=== PATIENT | female | born 1980 | race Caucasian/White ===

== ENCOUNTER 2022-05-09 08:41 | Outpatient (CLI) | payer BC, SELFPAY ==
[2022-05-09 11:29] LABS: Chloride* 105 mmol/L (96-114); Potassium* 4.6 mmol/L (3.6-5.1); Sodium* 139 mmol/L (135-149)
[2022-05-09 11:31] LABS: Carbon Dioxide* 25 mmol/L (20-32); Cholesterol* 199 mg/dL (90-199); Creatinine* 0.8 mg/dL (0.5-1.5); Estimated Glomerular Filt Rate 94 ml/min
[2022-05-09 11:32] LABS: Blood Urea Nitrogen* 11 mg/dL (5-24); Calcium* 9.5 mg/dL (8.4-10.6); Glucose* 92 mg/dL (60-115); HDL Cholesterol* 58 mg/dL (>=50); LDL Cholesterol Calculated 107 mg/dL (<100); Triglycerides* 172 mg/dL (40-149)
== END 2022-05-09 08:42 | disposition home or self-care (01) ==
PROVIDERS: Visit Provider Obstetrics & Gynecology
DX: Z01.419 Encounter for gynecological examination (general) (routine) without abnormal findings (principal); N92.0 Excessive and frequent menstruation with regular cycle; Z13.6 Encounter for screening for cardiovascular disorders
CPT/HCPCS: 80048; 80061; 84443

== ENCOUNTER 2023-05-19 13:39 | Outpatient (CLI) | payer MEDICAID, SELFPAY | END 2023-05-19 13:40 | disposition home or self-care (01) | PROVIDERS: Visit Provider Obstetrics & Gynecology | DX: R42 Dizziness and giddiness (principal) | CPT/HCPCS: 80061; 84146; 84439; 84443 ==

== ENCOUNTER 2023-05-19 14:51 | Emergency (ER) | payer MEDICAID, SELFPAY ==
[2023-05-19] VITALS (11 sets, daily range): BP systolic 120–144; BP diastolic 78–97; PULSE 70–77; RESP 14; TEMP 36.7; O2SAT 96–100; BMI 24.3
[2023-05-19] MEDS: 0.9 % SODIUM CHLORIDE 1000 ml 1,000 ML IV (15:15)
--- NOTE | 2023-05-19 15:22 | ED_ITS ---
HPI - Syncope General Time Seen by Provider: 15:22 Date Seen: 05/19/23 Chief Complaint: Syncope/Fainted Stated Complaint: Faint Time Seen by Provider: 05/19/23 15:18 Source: patient Mode of arrival: ambulatory Limitations: no limitations History of Present Illness HPI narrative: 42-year-old female who comes in today from the lab where she had a syncopal episode while getting blood drawn. [facility] been followed by [facility] for heavy menstrual bleeding, hemoglobin today is stable at 14. Patient is getting blood drawn and then got very lightheaded and dizzy, nauseated but no vomiting, no chest pain or palpitations. Says she feels better now, still little bit dizzy and says her eyes feel heavy. No numbness or tingling the arms or legs. No shortness of breath. Related Data Home Medications Medication Instructions Recorded Confirmed prednisone 10 mg tablet mg PO DIRECTED 05/09/22 05/19/23 Allergies Allergy/AdvReac Type Severity Reaction Status Date / Time No Known Drug Allergies Allergy Verified 05/19/23 13:20 [facility] Social History (Updated 05/19/23 @ 13:29 by Migdalia Cortez ~ [facility], [employer]) What is your current living situation?: I presently have a place to live Problems where you live: no known problems In the past 12 months, utilities in danger of being shut off: no In past 12 months, lack of transportation kept you from medical appts, meetings, work, or getting things needed for daily living: no In the past 12 mos, the food you bought just didn't last and you didn't have money to buy more?: never true Smoking Status: Former smoker Do you use any of these nicotine containing products: None Second hand tobacco smoke exposure: No How often do you have a drink containing alcohol: monthly or less How many standard drinks containing alcohol do you have on a typical day: 1 or 2 How often do you have six or more drinks on one occasion: Never AUDIT-C Alcohol total score: 1 Non-prescribed substance use: denies use How often does anyone, including family, friends and others, physically hurt you : never How often does anyone, including family, friends and others, insult or talk down to you: never How often does anyone, including family, friends and others, threaten you with harm: never How often does anyone, including family, friends and others, scream or curse at you: never Little interest or pleasure in doing things: not at all Feeling down, depressed, or hopeless: not at all service: No Exam Narrative: Exam Narrative: General: Well-developed and well-nourished, no acute distress Head: Atraumatic and normocephalic Eyes: Pupils are equal reactive, extraocular motions intact, conjunctiva clear ENT: External nose and ears are normal, posterior pharynx without erythema or exudate Neck: No midline cervical tenderness, full spontaneous range of motion the neck, trachea midline, no adenopathy Heart: Regular rate and rhythm no murmurs or thrills Lungs: Clear to auscultation bilaterally without wheezes or crackles Abdomen: Soft, nontender, nondistended with active bowel sounds Musculoskeletal: No tenderness, deformity, or edema Neurologic: Awake, alert, and oriented x3, no gross focal neurologic deficits, cranial nerves intact as tested Psych: Mood and affect are appropriate Skin: No rashes Const: Vital Signs, click to edit/add: Vital Signs - 24 hr 05/19/23 14:59 05/19/23 16:15 05/19/23 16:30 Temperature 98.1 F Pulse Rate 75 72 Pulse Rate [Pulse Oximeter] 75 Respiratory Rate 14 Blood Pressure Blood Pressure [Ri ght Upper Arm] 144/97 H Pulse Oximetry 100 98 98 Oxygen Delivery Me thod Room Air 05/19/23 16:32 05/19/23 17:00 05/19/23 17:02 Temperature Pulse Rate 76 77 76 Pulse Rate [Pulse Oximeter] Respiratory Rate Blood Pressure 122/78 127/87 Blood Pressure [Ri ght Upper Arm] Pulse Oximetry 98 98 99 Oxygen Delivery Me thod 05/19/23 17:30 05/19/23 17:32 05/19/23 18:00 Temperature Pulse Rate 75 74 70 Pulse Rate [Pulse Oximeter] Respiratory Rate Blood Pressure 125/82 Blood Pressure [Ri ght Upper Arm] Pulse Oximetry 97 98 96 Oxygen Delivery Tx thod 05/19/23 18:02 05/19/23 18:02 05/19/23 18:14 Temperature 98.1 F Pulse Rate 76 76 Pulse Rate [Pulse Oximeter] 75 Respiratory Rate 14 Blood Pressure 120/84 120/84 Blood Pressure [Ri ght Upper Arm] 144/97 H Pulse Oximetry 97 97 Oxygen Delivery Tx thod Course Course ED Course: Patient seen examined, prior records reviewed. Patient presents today with lightheadedness and syncope while getting blood drawn. Suspect vasovagal syncope, EKG is reassuring. IV fluids were given, patient is finally stable. Labs including D-dimer and troponin are ordered and will continue to monitor closely. Reevaluation(s) Time of Reevaluation #1: 17:33 Reevaluation #1: Labs independently interpreted by me with normal basic metabolic panel, normal CBC, negative troponin, negative D-dimer. Patient is feeling somewhat better after fluids and Zofran. Still little bit dizzy. Patient will be given meclizine and plan to discharge. Vital Signs Vital signs: Initial Vital Signs Temperature 98.1 F 05/19/23 14:59 Temperature Source Temporal Artery Scan 05/19/23 14:59 Pulse Rate 75 05/19/23 14:59 Pulse Rhythm Regular 05/19/23 14:59 Respiratory Rate 14 05/19/23 14:59 Blood Pressure 144/97 H 05/19/23 14:59 Blood Pressure Mean 112 H 05/19/23 14:59 Blood Pressure Position Supine 05/19/23 14:59 Pulse Oximetry 100 05/19/23 14:59 Oxygen Delivery Method Room Air 05/19/23 14:59 Vital Signs Temperature 98.1 F 05/19/23 14:59 Pulse Rate 75 05/19/23 14:59 Respiratory Rate 14 05/19/23 14:59 Blood Pressure 144/97 H 05/19/23 14:59 Pulse Oximetry 100 05/19/23 14:59 Oxygen Delivery Method Room Air 05/19/23 14:59 Temperature 98.1 F 05/19/23 18:14 Pulse Rate 75 05/19/23 18:14 Respiratory Rate 14 05/19/23 18:14 Blood Pressure 144/97 H 05/19/23 18:14 Pulse Oximetry 97 05/19/23 18:02 Oxygen Delivery Method Room Air 05/19/23 14:59 Medications Administered Medications: Discontinued Medications Generic Name Dose Route Start Last Admin Trade Name Freq PRN Reason Stop Dose Admin Sodium Chloride 1,000 mls @ 1,000 mls/hr 05/19/23 15:45 05/19/23 16:20 0.9 % Sodium Chloride 1000 Ml IV 05/19/23 16:44 Infused .Q1H MARITZA Infusion Meclizine HCl 25 mg 05/19/23 17:34 05/19/23 17:43 Meclizine Hcl 25 Mg Tablet PO 05/19/23 17:35 25 mg ONCE ONE Administration Ondansetron HCl 4 mg 05/19/23 15:33 05/19/23 15:45 Ondansetron 2 Mg/Ml Inj IVP 05/19/23 15:34 4 mg ONCE ONE Administration MDM - Syncope Lab Data Labs: Lab Results 05/19/23 05/19/23 Range/Units 15:15 17:15 WBC 7.36 (4.50-11.00) K/uL RBC 4.56 (4.00-5.20) m/uL Hgb 13.3 (12.0-16.0) gm/dL Hct 40.1 (33.0-51.0) % MCV 88 (80-100) fL MCH 29 (26-34) pg MCHC 33 (32-36) gm/dL RDW Coeff of Raya 12.3 (11.5-15.5) % Plt Count 292 (140-440) K/uL Neut % (Auto) 39.0 L (42.0-72.0) % Lymph % (Auto) 52.0 H (20-44) % [place] % (Auto) 4.9 (0.0-11.0) % Eos % (Auto) 3.5 (0.0-7.0) % Baso % (Auto) 0.5 (0.0-3.0) % Neut # (Auto) 2.90 (1.7-7.0) K/uL Lymph # (Auto) 3.80 H (0.90-2.90) K/uL [place] # (Auto) 0.40 (0.00-0.90) K/UL Eos # (Auto) 0.26 (0.00-0.50) K/uL Baso # (Auto) 0.04 (0.00-0.30) K/uL Abs Immat Gran (auto) 0.01 (0.00-0.30) K/uL Imm/Tot Granulo (auto) 0.1 % D-Dimer Quant (PE/DVT) < 0.27 (0.00-0.50) ug/ml Sodium 136 (135-149) mmol/L Potassium 3.6 (3.6-5.1) mmol/L Chloride 102 (96-114) mmol/L Carbon Dioxide 23 (20-32) mmol/L Anion Gap 11 (7-15) mEq/L BUN 14 (5-24) mg/dL Creatinine 0.8 (0.5-1.5) mg/dL Estimated Creat Clear 91.47 Estimated GFR 94 ml/min Glucose 95 (60-115) mg/dL Calcium 9.3 (8.4-10.6) mg/dL Urine Color Yellow (Yellow) Urine Appearance Clear (Clear) Urine pH 7.0 (5.0-8.5) Ur Specific [place] 1.010 (1.000-1.030) Urine Protein Negative (Negative) Urine Glucose (UA) Negative (Negative) Urine Ketones Negative (Negative) Urine Blood 2+ A (Negative) Urine Nitrite Negative (Negative) Urine Bilirubin Negative (Negative) Urine Urobilinogen 0.2 (0.2-1.0) Ur Leukocyte Esterase Negative (Negative) Urine RBC 2-5 A (0-2) Urine WBC 2-5 (0-5) Ur Squamous Epith Cells Few (None-Few) Urine Bacteria None (None) POC Troponin I 0.00 L (0.01-0.04) ng/ml ECG Data Attestation: I personally reviewed and interpreted this ECG as follows: ECG interpretation date: 05/19/23 ECG interpretation time: 15:29 Prior ECG tracings: not available for review Interpretation: Sinus rhythm rate 75, no acute ischemic changes, normal intervals, normal axis, PA 158, QTC 426 Discharge Plan Discharge Clinical Impression: Vasovagal syncope Patient Disposition: Home, Self-Care Condition: Stable Instructions: Syncope (DC) Activity Level: No Restrictions Discharge Diet: Regular Prescriptions: No Action prednisone 10 mg tablet PO DIRECTED Patient Comments: take 4 tablets by mouth once daily in the morning with food for 3 days then decrease to 3 tablets once daily for 3 days then 2 tablets for 3 Follow Up/Referrals: Provider,Not a Local [Primary Care Provider] - Stand Alone Forms: [employer] Info Instructions
[2023-05-19] MEDS: ONDANSETRON 2 MG/ML inj 4 MG IVP (15:45)
[2023-05-19 15:59] LABS: Basophils Absolute Auto 0.04 K/uL (0.00-0.30); Basophils Percent Auto 0.5 % (0.0-3.0); Eosinophils Absolute Auto 0.26 K/uL (0.00-0.50); Eosinophils Percent Auto 3.5 % (0.0-7.0); Hematocrit 40.1 % (33.0-51.0); Hemoglobin* 13.3 gm/dL (12.0-16.0); Immature Granulocytes Abs Auto 0.01 K/uL (0.00-0.30); Immature Granulocytes Pct Auto 0.1 %; Mean Corpuscular HGB Conc 33 gm/dL (32-36); Mean Corpuscular Hemoglobin 29 pg (26-34); Mean Corpuscular Volume 88 fL (80-100); Monocytes Percent Auto 4.9 % (0.0-11.0); Platelet Count* 292 K/uL (140-440); RDW Coefficient of Variation % 12.3 % (11.5-15.5); Red Blood Count 4.56 m/uL (4.00-5.20); White Blood Count* 7.36 K/uL (4.50-11.00)
[2023-05-19 16:03] LABS: Slide Review Reflex No
[2023-05-19 16:11] LABS: Chloride* 102 mmol/L (96-114); Potassium* 3.6 mmol/L (3.6-5.1); Sodium* 136 mmol/L (135-149)
[2023-05-19 16:13] LABS: Creatinine* 0.8 mg/dL (0.5-1.5); Est. Creatinine Clearance* 91.47; Estimated Glomerular Filt Rate 94 ml/min
[2023-05-19 16:14] LABS: Anion Gap 11 mEq/L (7-15); Blood Urea Nitrogen* 14 mg/dL (5-24); Calcium* 9.3 mg/dL (8.4-10.6); Carbon Dioxide* 23 mmol/L (20-32); Glucose* 95 mg/dL (60-115)
[2023-05-19 16:32] LABS: D Dimer Quantitative* < 0.27 ug/ml (0.00-0.50)
[2023-05-19 17:36] LABS: Appearance Urine Clear (Clear); Bilirubin Urine Negative (Negative); Blood Urine 2+ (Negative); Color Urine Yellow (Yellow); Glucose Urine Negative (Negative); Ketones Urine Negative (Negative); Leukocyte Esterase Urine Negative (Negative); Nitrite Urine Negative (Negative); Protein Urine Negative (Negative); Urobilinogen Urine 0.2 (0.2-1.0)
[2023-05-19] MEDS: MECLIZINE HCL 25 MG TABLET PO (17:43)
[2023-05-19 17:45] LABS: Squamous Epithelial Cell Urine Few (None-Few)
--- NOTE | 2023-05-19 18:15 | ED.NURSE ---
Pt reports improvement in symptoms, states she feels well enough to drive home. VSS. Able to stand and ambulate in room, tolerated well.
== END 2023-05-19 18:17 | disposition home or self-care (01) ==
PROVIDERS: Emergency Provider Family Medicine
DX: R55 Syncope and collapse (principal)
CPT/HCPCS: 36415; 80048; 81001; 84484; 85025; 85379; 93005; 96374; 99284; A9270; J2405; J7030

== ENCOUNTER 2023-05-25 16:05 | Outpatient (CLI) | payer MEDICAID, SELFPAY ==
--- NOTE | 2023-05-25 16:00 | CRLHL7_ITS ---
For Patients: As a result of the Century Cures Act, medical imaging exams and procedure reports are released immediately into your electronic medical record. You may view this report before your referring provider. If you have questions, please contact your health care provider. INDICATION: EXCESSIVE AND FREQUENT BLEEDING COMPARISON: none TECHNIQUE: 2D laguna scale and color Doppler images were acquired of the pelvis using a transabdominal and transvaginal approach. FINDINGS: Sonographic images demonstrate a normal size and smooth outer contour of the uterus. Uterus measures 9.9 cm in length by 3.8 cm in AP diameter by 5.9 cm in transverse dimension. Intrauterine cyst is present within the right fundus measuring 11 x 8 x 12 millimeters. The endometrial lining measures 11 mm in composite thickness. Hyperechoic nodular structure within the endometrium measuring 9 x 6 x 11 millimeters. The right ovary measures 4.1 x 2.5 x 2.8 cm in size and the left ovary measures 3.2 x 1.3 x 1.7 cm. Simple right ovarian cyst is present measuring 2.4 cm. The ovaries demonstrate normal arterial and venous blood flow on color Doppler analysis. There are no suspicious fluid collections within the cul-de-sac. IMPRESSION: Endometrium measures 11 millimeters. Probable endometrial polyp measuring 9 x 6 x 11 millimeters. Dictated by Han Miller MD @ 05/26/2023 10:20:40 AM (Electronically Signed)
== END 2023-05-25 16:06 | disposition home or self-care (01) ==
LOC: US 16:05
PROVIDERS: Visit Provider Obstetrics & Gynecology
DX: N93.9 Abnormal uterine and vaginal bleeding, unspecified (principal); R93.89 Abnormal findings on diagnostic imaging of other specified body structures
CPT/HCPCS: 76830; 76856

== ENCOUNTER 2023-06-14 06:07 | Day surgery (SDC) | payer MEDICAID, SELFPAY ==
[2023-06-14] VITALS (7 sets, daily range): BP systolic 111–127; BP diastolic 70–84; PULSE 76–98; RESP 16; TEMP 36.3–36.9; O2SAT 95–100; BMI 24.7
[2023-06-14] MEDS: LACTATED RINGERS 1000 ML 1,000 ML 100 ML IV (06:45)
[2023-06-14] MEDS: SODIUM CHLORIDE 0.9 % (FLUSH) 10 ML SYRINGE IVF (06:45)
--- NOTE | 2023-06-14 06:53 | W.PM.H&PU ---
History & Physical Update History & Physical Update H&P Updates: Majo is currently in the middle of her menstrual cycle. She endorses heavy bleeding and cramping. Would like to proceed with planned surgery. No other interval changes reported.
[2023-06-14 07:02] LABS: Hemoglobin* 13.8 gm/dL (12.0-16.0)
[2023-06-14 07:05] LABS: Ur HCG Qualitative* Negative (Negative)
[2023-06-14 07:18] LABS: Creatinine* 0.6 mg/dL (0.5-1.5); Est. Creatinine Clearance* 121.96; Estimated Glomerular Filt Rate 114 ml/min
--- NOTE | 2023-06-14 07:29 | W.PM.GYNPROC ---
Procedure Note Time Seen by Provider: 07:29 Date of procedure: 06/14/23 Procedure: Preoperative diagnosis: Conchis is a 42 year-old with abnormal uterine bleeding (menorrhagia) and dysmenorrhea. Postoperative diagnosis: Same. Endometrial polyps Procedure: (1) Hysteroscopy (2) Dilation and curettage (3) Polypectomy (4) Mirena IUD insertion Anesthesia: Conscious sedation with paracervical block. Surgeon:Elsie Duncan MD Estimated blood loss: <5 mL Specimen: Endometrial curettings to pathology. Findings: Exam under anesthesia: Cervix palpates normal. Uterus: anteverted position, 6 week size, mobile, without nodularity/masses palpable. Adnexa were without fullness or nodularity. On hysteroscopy: Normal bilateral tubal ostia, fluffy endometrium, and possible sessile polyps near uterine fundus. Procedure: Conchis was taken to the operating where conscious sedation was found to be adequate. She was placed in the dorsal lithotomy position. An exam under anesthesia was performed with findings stated above. She was then prepped and draped in normal sterile manner. A bivalve metal speculum was placed in the vaginal canal. The cervix and vaginal canal appear normal. A paracervical block was placed using 1% lidocaine with epinephrine: 5 mL injected at the 4 and 8 o'clock positions on the cervix. The anterior lip of the cervix was then grasped with a long tenaculum. The cervix was dilated to Hegar 6. The uterus sounded to 8 cm. The hysteroscope advanced into the uterus and a diagnostic hysteroscopy was performed with findings stated above. Normal saline was used as the insufflation medium. The soft tissue shaver was used to performed the polypectomy and global curettage. The hysteroscope was then removed. Fluid deficit at the end of the procedure 120 mL. The hysteroscope was removed. Attention then turned towards the Mirena IUD insertion. The IUD is loaded into the insertion tube, inserted to the sounded depth, and the IUD is deployed. Insertion tube was removed. Strings are trimmed to 3 cm. There were no complications with insertion. Patient tolerated procedure well. Allis clamp was removed from the cervix. Excellent hemostasis noted. Nothing was used for hemostasis. The patient tolerated the procedure well. Sponge, lap and instruments counts were correct at the end of the procedure. The patient was awakened from anesthesia and taken to the recovery area in stable condition. Surgical debrief performed and specimen reviewed at the end of the procedure.
--- NOTE | 2023-06-14 08:12 | W.ANESCHARGE ---
Anesthesia Charges Start Date/Time Anesthesia Start Date: 06/14/23 Anesthesia Start Time: 07:21 Stop Date/Time Anesthesia Stop Date: 06/14/23 Anesthesia Stop Time: 08:09
[2023-06-14] MEDS: ACETAMINOPHEN 500 MG TABLET 1000 MG PO (09:00)
--- NOTE | 2023-06-14 11:40 | W.ANESCHARGE ---
Anesthesia Charges Start Date/Time Anesthesia Start Date: 06/14/23 Anesthesia Start Time: 07:21 Stop Date/Time Anesthesia Stop Date: 06/14/23 Anesthesia Stop Time: 08:09
== END 2023-06-14 10:00 | disposition home or self-care (01) ==
PROVIDERS: Visit Provider Obstetrics & Gynecology
PROC: 0UDB8ZZ Extraction of Endometrium, Via Natural or Artificial Opening Endoscopic (ICD-10-PCS; CPT 58558; principal; 2023-06-14 07:15)
DX: N92.0 Excessive and frequent menstruation with regular cycle (principal); N94.6 Dysmenorrhea, unspecified; N84.0 Polyp of corpus uteri; Z30.430 Encounter for insertion of intrauterine contraceptive device
CPT/HCPCS: 58558; 58300; 00952; 36415; 81025; 82565; 85018; 86850; 86900; 86901; 88305; A9270; J1100; J1885; J2250; J2405; J2704; J3010; J7120; J7298

== ENCOUNTER 2023-06-15 08:40 | Outpatient (CLI) | payer MEDICAID, SELFPAY ==
--- NOTE | 2023-06-15 08:45 | CRLHL7_ITS ---
For Patients: As a result of the Cures Act, medical imaging exams and procedure reports are released immediately into your electronic medical record. You may view this report before your referring provider. If you have questions, please contact your health care provider. DIGITAL DIAGNOSTIC BILATERAL MAMMOGRAM USING TOMOSYNTHESIS AND COMPUTER-AIDED DETECTION RIGHT BREAST ULTRASOUND CLINICAL HISTORY: RIGHT breast lump. COMPARISON: 05/04/2022, 08/20/2021, 05/10/2021, 04/28/2021. TECHNIQUE: Digital BILATERAL mammogram in four projections. Tomosynthesis and CAD utilized. Real-time ultrasound imaging of RIGHT breast with imaging documentation. Scanning was performed by both the technologist and the radiologist. BREAST COMPOSITION: There are areas of scattered fibroglandular density. FINDINGS: Mammogram images demonstrate normal fibroglandular tissue. No architectural distortion or suspicious mass. No adenopathy or suspicious calcification. Targeted RIGHT breast ultrasound performed in area of concern within the RIGHT breast. Normal fibroglandular tissue noted. No suspicious findings. IMPRESSION: No evidence of malignancy. RECOMMENDATIONS: Routine screening mammography. Results and recommendations discussed with the patient. BI-RADS Category 2: Benign A lay language report of this examination will be provided to the patient. Dictated by Han Miller MD @ 06/15/2023 1:37:13 PM [email or web address]/Dictated by: Han Miller MD @ 06/15/2023 1:37:00 PM (Electronically Signed)
--- NOTE | 2023-06-15 09:15 | CRLHL7_ITS ---
For Patients: As a result of the Cures Act, medical imaging exams and procedure reports are released immediately into your electronic medical record. You may view this report before your referring provider. If you have questions, please contact your health care provider. PLEASE SEE DIGITAL DIAGNOSTIC BILATERAL MAMMOGRAM PERFORMED SAME DAY CRL:matthias rizzo/Dictated by: Han Miller MD @ 06/15/2023 1:37:00 PM (Electronically Signed)
== END 2023-06-15 08:41 | disposition home or self-care (01) ==
LOC: MAMMO 08:40
PROVIDERS: Visit Provider Obstetrics & Gynecology
DX: N63.10 Unspecified lump in the right breast, unspecified quadrant (principal)
CPT/HCPCS: 76642; 77066; G0279

== ENCOUNTER 2023-06-30 10:47 | Outpatient (REF) | payer MEDICAID, SELFPAY ==
[2023-06-30 11:31] LABS: Free T4 Free Thyroxine* 1.04 ng/dL (0.70-1.85)
== END 2023-06-30 10:48 | disposition home or self-care (01) ==
LOC: NPINS 10:47
DX: Z01.818 Encounter for other preprocedural examination (principal)
CPT/HCPCS: 84439; 84443

== ENCOUNTER 2024-06-21 13:11 | Outpatient (CLI) | payer MEDICAID, SELFPAY ==
--- NOTE | 2024-06-21 13:20 | CRLHL7_ITS ---
For Patients: As a result of the Century Cures Act, medical imaging exams and procedure reports are released immediately into your electronic medical record. You may view this report before your referring provider. If you have questions, please contact your health care provider. BILATERAL SCREENING MAMMOGRAM WITH COMPUTER-AIDED DETECTION AND TOMOSYNTHESIS TECHNIQUE: CC and MLO views were obtained. These mammographic images have been obtained using full-field digital technique. These mammographic images were interpreted with the benefit of computer-aided detection. Breast Tomosynthesis was used in this interpretation. COMPARISON FILM: 06/15/2023, 05/04/2022, 04/28/2021. FINDINGS: The breasts are heterogeneously dense, which may obscure small masses. IMPRESSION: There is no radiographic evidence for malignancy. ASSESSMENT: BI-RADS Category 1: Negative RECOMMENDATION: Routine screening mammogram in 1 year. A lay language report of this examination will be provided to the patient. Han Miller M.D. Diagnostic Radiologist [email or web address] SP/Dictated by: Han Miller MD @ 06/24/2024 9:38:00 AM (Electronically Signed)
== END 2024-06-21 13:12 | disposition home or self-care (01) ==
LOC: MAMMO 13:13
PROVIDERS: Visit Provider Obstetrics & Gynecology
DX: Z12.31 Encounter for screening mammogram for malignant neoplasm of breast (principal); R92.333 Mammographic heterogeneous density, bilateral breasts
CPT/HCPCS: 77063; 77067